=== PATIENT | male | born 1995 | race Caucasian/White ===

== ENCOUNTER 2017-04-05 08:17 | Emergency (ER) | payer MEDICAID, OTHER ==
[~2017-04-05] VITALS: Ht 170.2 cm; Wt 85.0 kg
[2017-04-05 08:19] VITALS: Ht 170.2 cm; Wt 85.0 kg
[2017-04-05] MEDS ORDERED: SOD CHLORIDE 0.9% 1,000 ML IV STA (08:36)
[2017-04-05] MEDS ORDERED: ACETAMINOPHEN 500 MG TAB PO STA (08:36)
[2017-04-05] MEDS ORDERED: KETOROLAC 15 MG INJ IV STA (08:36)
[2017-04-05] MEDS ORDERED: LORATADINE 10 MG TAB PO STA (08:52)
[2017-04-05 09:04] LABS: ABNORMAL IP MESSAGE 1; BASOPHILS % 0.1 % (0.0-2.0); HEMATOCRIT 44.9 % (42.0-52.0); HEMOGLOBIN 15.8 g/dl (14.0-18.0); LYMPHOCYTES # 0.6 10^3/ul (0.8-2.9); LYMPHOCYTES % 3.8 % (18.0-55.0); MEAN CORPUSCULAR HEMOGLOBIN 31.1 pg (29.0-33.0); MEAN CORPUSCULAR HGB CONC 35.2 g/dl (32.0-37.0); MEAN CORPUSCULAR VOLUME 88.4 fl (72.0-104.0); MONOCYTE # 0.5 10^3/ul (0.3-0.9); MONOCYTES % 3.2 % (0.0-13.0); NEUTROPHIL # 13.8 10^3/ul (1.6-7.5); NEUTROPHILS % 92.4 % (30.0-74.0); PLATELET COUNT 177 10^3/UL (140-415); POSITIVE DIFF @See below; RED BLOOD COUNT 5.08 10^6/ul (4.70-6.10); WHITE BLOOD COUNT 14.9 10^3/ul (4.8-10.8)
--- NOTE | 2017-04-05 09:25 | RADRPT ---
PROCEDURE: XR Chest. CLINICAL INDICATION: chest pain, fever TECHNIQUE: Single frontal view of the chest was obtained COMPARISON: None FINDINGS: The heart and mediastinum are within normal limits. The lungs are clear. There is no pleural effusion or pneumothorax. RPTAT: AA IMPRESSION: No acute disease. .Clark Joseph MD, MD Date Time Electronically viewed and signed by .Clark Joseph MD, on 04/05/2017 09:25 .S/
[2017-04-05 09:31] LABS: ALBUMIN 4.4 g/dl (3.3-4.9); ALBUMIN/GLOBULIN RATIO 1.69; BILIRUBIN,INDIRECT 0.4 mg/dl (0-1.1); BILIRUBIN,TOTAL 0.4 mg/dl (0.2-1.3); CALCIUM 9.2 mg/dl (8.4-10.2); CREATININE 1.04 mg/dl (0.61-1.24); POTASSIUM 4.2 mmol/L (3.5-5.1)
[2017-04-05 10:09] LABS: ADD UMIC YES; UR ASCORBIC ACID NEGATIVE (NEGATIVE); UR BILIRUBIN (Dip) NEGATIVE (NEGATIVE); UR BLOOD (Dip) 1+ mg/dL (NEGATIVE); UR CLARITY CLEAR (CLEAR); UR COLOR YELLOW (YELLOW); UR GLUCOSE (Dip) NEGATIVE (NEGATIVE); UR KETONES (Dip) NEGATIVE (NEGATIVE); UR LEUKOCYTE ESTERASE (Dip) NEGATIVE Leu/ul (NEGATIVE); UR MUCUS MODERATE /HPF (NONE SEEN); UR NITRITE (Dip) NEGATIVE (NEGATIVE); UR RBC 0 /HPF (0-5); UR SPECIFIC GRAVITY (Dip) 1.025 (1.003-1.030); UR TOTAL PROTEIN (Dip) NEGATIVE (NEGATIVE); UR UROBILINOGEN (Dip) NEGATIVE (NEGATIVE)
[2017-04-05] MEDS ORDERED: ACET325T33 PO (10:28)
--- NOTE | 2017-04-05 10:40 | ERD ---
ER Documentation Chief Complaint Date/Time DATE: 04/05/17 TIME: 10:37 Chief Complaint headache since yesterday HPI 21-year-old male presents to the emergency department complaining of headache and fever since yesterday afternoon. Patient rates the pain as moderate in severity and located in the global region. Patient denies nausea, vomiting, diarrhea and cough. Patient states that he had central abdominal pain rating it mild last night because he was constipated. He states that he took 2 charcoal cleansing pills and had a bowel movement last night. Patient states that he also took 2 Advil 2 PM yesterday. He denies any dysuria, hematuria. ROS All systems reviewed and are negative except as per history of present illness. Medications Home Meds Active Scripts Acetaminophen* (Tylenol*) 325 Mg Tablet, 2 TAB PO Q4 Y for PAIN AND OR ELEVATED TEMP, #30 TAB Prov:AKSHAT WOODS PA-C 04/05/17 Allergies Allergies: Coded Allergies: No Known Allergy (Unverified , 04/05/17) PMhx/Soc Medical and Surgical Hx: pt denies Medical Hx, pt denies Surgical Hx Hx Alcohol Use: Yes Hx Substance Use: No Hx Tobacco Use: No Smoking Status: Never smoker Physical Exam Vitals Vital Signs Date Time Temp Pulse Resp B/P Pulse Ox O2 Delivery O2 Flow Rate FiO2 04/05/17 08:19 103.0 107 18 142/65 98 Physical Exam GENERAL: well-developed/well-nourished, in no apparent distress, non-toxic appearing HENT: NC/AT, moist mucous membranes EYES: Conjunctiva normal NECK: Supple, no lymphadenopathy Negative Kernig's sign, Negative Brudzinski's sign PULM: CTA bilaterally, no rales, rhonchi, or wheezing heard CV: Normal S1S2, RRR, good capillary refill GI: Soft, non-distended, non-tender to palpation Normal bowel sounds, no masses or organomegaly felt on exam No gross peritonitis, no bruits Negative Rovsing, negative Aviles, negative McBurney's point, Negative CVAT BACK: No masses EXT: No clubbing, cyanosis, or edema NEURO: Alert and Orientated SKIN: Intact, normal turgor PSYCH: Normal mood and mentation Result Diagram: 04/05/17 0850 04/05/17 0850 Results 24 hrs Laboratory Tests Test 04/05/17 08:50 04/05/17 09:47 White Blood Count 14.910^3/ul Red Blood Count 5.0810^6/ul Hemoglobin 15.8g/dl Hematocrit 44.9% Mean Corpuscular Volume 88.4fl Mean Corpuscular Hemoglobin 31.1pg Mean Corpuscular Hemoglobin Concent 35.2g/dl Red Cell Distribution Width 12.0% Platelet Count 08279^3/UL Mean Platelet Volume 10.0fl Neutrophils % 92.4% Lymphocytes % 3.8% Monocytes % 3.2% Eosinophils % 0.0% Basophils % 0.1% Nucleated Red Blood Cells % 0.0/100WBC Neutrophils # 13.810^3/ul Lymphocytes # 0.610^3/ul Monocytes # 0.510^3/ul Eosinophils # 0.010^3/ul Basophils # 0.010^3/ul Nucleated Red Blood Cells # 0.010^3/ul Sodium Level 141mmol/L Potassium Level 4.2mmol/L Chloride Level 100mmol/L Carbon Dioxide Level 26mmol/L Anion Gap 19 Blood Urea Nitrogen 10mg/dl Creatinine 1.04mg/dl Glucose Level 115mg/dl Calcium Level 9.2mg/dl Total Bilirubin 0.4mg/dl Direct Bilirubin 0.00mg/dl Indirect Bilirubin 0.4mg/dl Aspartate Amino Transf (AST/SGOT) 19IU/L Alanine Aminotransferase (ALT/SGPT) 27IU/L Alkaline Phosphatase 63IU/L Total Protein 7.0g/dl Albumin 4.4g/dl Globulin 2.60g/dl Albumin/Globulin Ratio 1.69 Lipase 33U/L Urine Color YELLOW Urine Clarity CLEAR Urine pH 5.0 Urine Specific [place] 1.025 Urine Ketones NEGATIVEmg/dL Urine Nitrite NEGATIVEmg/dL Urine Bilirubin NEGATIVEmg/dL Urine Urobilinogen NEGATIVEmg/dL Urine Leukocyte Esterase NEGATIVELeu/ul Urine Microscopic RBC 0/HPF Urine Microscopic WBC 1/HPF Urine Mucus MODERATE/HPF Urine Hemoglobin 1+mg/dL Urine Glucose NEGATIVEmg/dL Urine Total Protein NEGATIVEmg/dl Current Medications Medications (Trade) Dose Ordered Sig/Felix Route PRN Reason Start Time Stop Time Status Last Admin Dose Admin Sodium Chloride (NS) 1,000 ml @ 1,000 mls/hr Q1H STAT IV 04/05/17 08:36 04/05/17 09:35 DC 04/05/17 08:55 Ketorolac Tromethamine (Toradol) 15 mg ONCE STAT IV 04/05/17 08:36 04/05/17 08:38 DC 04/05/17 08:54 Acetaminophen (Tylenol Tab) 1,000 mg ONCE STAT PO 04/05/17 08:36 04/05/17 08:38 DC 04/05/17 08:55 Loratadine (Claritin) 10 mg ONCE STAT PO 04/05/17 08:52 04/05/17 09:07 DC Procedures/MDM This is a 21-year-old male presenting to the emergency department with fever and headache since yesterday afternoon. On examination patient was febrile with mild tachycardia. There was no evidence of sepsis. No evidence of meningitis, pneumonia, otitis media, strep pharyngitis, urinary tract infection. IV access was established. Lab work was drawn. CBC showed mild leukocytosis. CMP did not show any evidence of renal, liver, or electrolyte abnormalities. Lipase was normal. UA did not show any evidence of hemoglobin or urinary tract infection. Chest x-ray did not show any evidence of infiltrates, pneumothorax or pleural effusion. Patient was given 1 L fluids, Toradol and Tylenol. I have reassessed him and his fever trend downward, he is significantly feeling better. Patient stable to be discharged home to follow- up with primary care physician with instructions to return to the ER for any worsening signs or symptoms are not improving as expected. Prescription for Tylenol was provided. Patient understands and agrees with this plan Departure Diagnosis: Primary Impression: Headache Additional Impression: Fever Condition: Stable Patient Instructions: Self-Care for Headaches, Fever Control (Adult) Additional Instructions: FOLLOW UP WITH YOUR PRIMARY CARE PHYSICIAN TOMORROW.Return to this facility if you are not improving as expected. Take all medicines as directed. Return to this facility if you are not improving as expected. AKSHAT WOODS PA-C Apr 05, 2017 10:40
== END 2017-04-05 10:38 | disposition home or self-care (01) ==
LOC: FTE 08:17
DX: R51 Headache (principal); R50.9 Fever, unspecified
CPT/HCPCS: 36415; 71010; 80053; 81001; 83690; 85025; 96374; J7030; Z7502; J1885